=== PATIENT | male | born 1990 | race Caucasian/White ===

== ENCOUNTER 2021-05-16 08:42 | Emergency (ER) | payer OTHER ==
[~2021-05-16] VITALS: Ht 182.9 cm; Wt 106.8 kg
[2021-05-16 08:44] VITALS: BP 151/83
[2021-05-16] MEDS ORDERED: AMLO-257 PO (08:44)
[2021-05-16] MEDS ORDERED: PredniSONE 20 MG TABLET PO ONE (09:00)
[2021-05-16] MEDS ORDERED: DiphenhydrAMINE HCL 50 MG/ML VIAL IM ONE (09:00)
== END 2021-05-16 09:26 | disposition home or self-care (01) ==
LOC: EMS 08:42
DX: L50.9 Urticaria, unspecified (principal); I10 Essential (primary) hypertension
CPT/HCPCS: 96372; 99283; J1200; J7512